=== PATIENT | female | born 2000 | race Two or more races ===

== ENCOUNTER 2023-02-02 16:21 | Emergency (ER) | payer MEDICAID, OTHER ==
[~2023-02-02] VITALS: Ht 170.2 cm; Wt 122.1 kg
[2023-02-02 16:45] VITALS: BP 106/66; PULSE 100; RESP 18; O2SAT 97
== END 2023-02-02 19:13 | disposition left against medical advice (07) ==
LOC: ER 16:21
DX: M25.562 Pain in left knee (principal); Z53.21 Procedure and treatment not carried out due to patient leaving prior to being seen by health care provider